=== PATIENT | female | born 1965 | race American Indian/Alaskan Native ===

== ENCOUNTER 2018-09-26 19:45 | Emergency (ER) | payer MEDICARE ==
--- NOTE | 2018-09-26 20:37 | Emergency Department Report ---
Blank Doc - Documentation Documentation: This is a 52-year-old female that presents with diarrhea and bloody stools. A lso has some abdominal pain. This initial assessment/diagnostic orders/clinical plan/treatment(s) is/are subject to change based on patient's health status, clinical progression and re- assessment by fellow clinical providers in the ED. Further treatment and workup at subsequent clinical providers discretion. Patient/guardians urged not to elope from the ED as their condition may be serious if not clinically assessed and managed. Initial orders include: 1- Patient sent to MAIN ED for further evaluation and treatment 2- labs 3- UA
[2018-09-26 21:07] LABS: Basophils # (Auto) 0.1 K/mm3 (0.0-0.1); Basophils % (Auto) 0.7 % (0.0-1.8); Eosinophils # (Auto) 0.2 K/mm3 (0.0-0.4); Eosinophils % (Auto) 2.6 % (0.0-4.3); Hematocrit 40.9 % (30.3-42.9); Hemoglobin 13.6 gm/dl (10.1-14.3); Lymphocytes # (Auto) 3.1 K/mm3 (1.2-5.4); Lymphocytes % (Auto) 35.1 % (13.4-35.0); Mean Corpuscular HGB Conc 33 % (30-34); Mean Corpuscular Volume 81 fl (79-97); Monocytes # (Auto) 0.4 K/mm3 (0.0-0.8); Platelet Count 254 K/mm3 (140-440); Red Blood Count 5.06 M/mm3 (3.65-5.03); Red Cell Distribution Width 15.4 % (13.2-15.2)
[2018-09-26 21:17] LABS: INR 0.88 (0.87-1.13); Partial Thromboplastin Time 29.9 Sec. (24.2-36.6)
[2018-09-26 21:21] LABS: Bacteria,Urine 1+ /HPF (Negative); Bilirubin,Urine NEG (Negative); Blood,Urine MOD (Negative); Color,Urine Amber (Yellow); Mucus,Urine 3+ /HPF; Urobilinogen,Urine < 2.0 mg/dL (<2.0)
[2018-09-26 21:30] LABS: Alanine Aminotransferase 14 units/L (7-56); Albumin 4.2 g/dL (3.9-5); BUN/Creatinine Ratio 14; Blood Urea Nitrogen 11 mg/dL (7-17); Calcium 9.9 mg/dL (8.4-10.2); Hemolysis Index 5
[2018-09-26 21:31] LABS: Bilirubin,Direct < 0.2 mg/dL (0-0.2)
[2018-09-26] MEDS ORDERED: TYLENOL PO ONE (22:26)
[2018-09-26] MEDS ORDERED: SUBLIMAZE IV ONE (22:26)
[2018-09-26] MEDS ORDERED: NACL 0.9% 1000 ML 1,000 ML IV ONE (22:26)
--- NOTE | 2018-09-26 22:27 | Emergency Department Report ---
ED General Adult HPI - General Chief complaint: GI Bleed Stated complaint: EMESIS/BLOODY STOOL/DIARRHEA Time Seen by Provider: 09/26/18 20:36 Source: patient, RN notes reviewed Mode of arrival: Ambulatory Limitations: No Limitations - History of Present Illness Initial comments: This is a 52-year-old female. The patient is not known to this provider pr eviously. She reports her primary care doctor is Dr. Rodríguez. She has a past medical history of diabetes, hypertension and depression. She reports that she is not taking her outpatient medications for many months. Patient presents to the emergency room with a complaint of diarrhea for many months. She reports that over the past few days, she has had "too many episodes to count." She thinks there might be blood, but she is not sure. She has intermittent abdominal pain. She denies abdominal pain at this moment. She denies nausea, vomiting. She denies irritative, obstructive urinary symptoms. She does not have a tree marker. She has not had a colonoscopy. Her symptoms of diarrhea worsened when she eats or drinks reportedly. Her abdominal pain is not present at the moment. -: Gradual, month(s) Radiation: abdomen Severity scale (0 -10): 8 Consistency: other Improves with: other Worsens with: other - Related Data Home Medications Medication Instructions Recorded Confirmed Last Taken Citalopram [Celexa] 10 mg PO QDAY 03/21/13 03/21/13 04/09/13 18:00 Ferrous Sulfate [Ferrous Sulfate 325 mg PO TID 03/21/13 03/21/13 04/07/13 18:00 Oral Liq 220 Mg/5 Ml] Insulin NPH Hum/Reg Insulin Hm 40 unit SQ 03/21/13 03/21/13 04/09/13 18:00 [Humulin 70-30 Vial] Lisinopril [Zestril] 10 mg PO QDAY 03/21/13 03/21/13 04/09/13 09:00 Metformin HCl [Metformin HCl ER] 500 mg PO BID 03/21/13 03/21/13 04/09/13 18:00 amLODIPine [Norvasc] 10 mg PO DAILY 03/21/13 03/21/13 04/09/13 18:00 clonazePAM [ Klonopin] 0.5 mg PO BID PRN 03/21/13 03/21/13 04/09/13 18:00 glipiZIDE [Glucotrol] 20 mg PO BID 03/21/13 03/21/13 04/09/13 18:00 risperiDONE [Risperidone] 1 mg PO BID 03/21/13 03/21/13 04/09/13 18:00 Previous Rx's Medication Instructions Recorded Last Taken Type Hydrocodone Bit/Acetaminophen 1 each PO Q6HR #10 tablet 04/10/13 Unknown Rx [Lortab 5-500 Tablet] Acetaminophen [Tylenol Arthritis] 650 mg PO Q6HR PRN #30 tablet.er 09/26/18 Unknown Rx Ciprofloxacin HCl [Cipro] 500 mg PO BID #14 tablet 09/26/18 Unknown Rx Metoclopramide [Reglan] 10 mg PO QID PRN #30 tablet 09/26/18 Unknown Rx metroNIDAZOLE [Flagyl] 500 mg PO Q8HR #21 tablet 09/26/18 Unknown Rx Allergies Allergy/AdvReac Type Severity Reaction Status Date / Time No Known Allergies Allergy Unverified 03/21/13 11:08 ED Review of Systems ROS: Stated complaint: EMESIS/BLOODY STOOL/DIARRHEA Other details as noted in HPI Constitutional: denies: fever, malaise Eyes: denies: eye discharge ENT: denies: epistaxis Respiratory: denies: cough Cardiovascular: denies: chest pain Gastrointestinal: abdominal pain, diarrhea Genitourinary: denies: urgency, dysuria Musculoskeletal: denies: back pain Skin: denies: lesions Neurological: denies: weakness Psychiatric: denies: anxiety ED Past Medical Hx - Past Medical History Previous Medical History?: Yes Hx Hypertension: Yes Hx Diabetes: Yes (2002) Hx Psychiatric Treatment: Yes (depression) - Surgical History Past Surgical History?: Yes Hx Cholecystectomy: Yes Additional Surgical History: B/L breast reconstruction - Social History Smoking Status: Never Smoker Substance Use Type: None - Medications Home Medications: Home Medications Medication Instructions Recorded Confirmed Last Taken Type Citalopram [Celexa] 10 mg PO QDAY 03/21/13 03/21/13 04/09/13 18:00 History Ferrous Sulfate [Ferrous Sulfate 325 mg PO TID 03/21/13 03/21/13 04/07/13 18:00 History Oral Liq 220 Mg/5 Ml] Insulin NPH Hum/Reg Insulin Hm 40 unit SQ 03/21/13 03/21/1313 18:00 History [Humulin 70-30 Vial] Lisinopril [Zestril] 10 mg PO QDAY 03/21/13 03/21/13 04/09/13 09:00 History Metformin HCl [Metformin HCl ER] 500 mg PO BID 03/21/13 03/21/13 04/09/13 18:00 History amLODIPine [Norvasc] 10 mg PO DAILY 03/21/13 03/21/13 04/09/13 18:00 History clonazePAM [ Klonopin] 0.5 mg PO BID PRN 03/21/13 03/21/13 04/09/13 18:00 History glipiZIDE [Glucotrol] 20 mg PO BID 03/21/13 03/21/13 04/09/13 18:00 History risperiDONE [Risperidone] 1 mg PO BID 03/21/13 03/21/13 04/09/13 18:00 History Hydrocodone Bit/Acetaminophen 1 each PO Q6HR #10 tablet 04/10/13 Unknown Rx [Lortab 5-500 Tablet] Acetaminophen [Tylenol Arthritis] 650 mg PO Q6HR PRN #30 tablet.er 09/26/18 Unknown Rx Ciprofloxacin HCl [Cipro] 500 mg PO BID #14 tablet 09/26/18 Unknown Rx Metoclopramide [Reglan] 10 mg PO QID PRN #30 tablet 09/26/18 Unknown Rx metroNIDAZOLE [Flagyl] 500 mg PO Q8HR #21 tablet 09/26/18 Unknown Rx ED Physical Exam - General Limitations: No Limitations General appearance: alert, in no apparent distress - Head Head exam: Present: atraumatic, normocephalic - Eye Eye exam: Present: normal appearance, EOMI. Absent: nystagmus - ENT ENT exam: Present: normal exam, normal orophraynx, mucous membranes moist, normal external ear exam - Neck Neck exam: Present: normal inspection, full ROM. Absent: tenderness, meningismus - Respiratory Respiratory exam: Present: normal lung sounds bilaterally. Absent: respiratory distress - Cardiovascular Cardiovascular Exam: Present: regular rate, normal rhythm, normal heart sounds. Absent: bradycardia, tachycardia, irregular rhythm, systolic murmur, diastolic murmur, rubs, gallop - GI/Abdominal GI/Abdominal exam: Present: soft, tenderness, other (there is right lower quadrant tenderness. There is no rebound, guarding or peritoneal signs.). Absent: distended, guarding, rebound, rigid, pulsatile mass - Rectal Rectal exam: Present: normal inspection, normal rectal tone, heme (-) stool, other (chaperoned by nurse ASHTYN PINEDA). Absent: decreased rectal tone, heme (+) stool, black stool, bloody stool, fecal impaction, hemorrhoids, mass - Extremities Exam Extremities exam: Present: normal inspection, full ROM, other (2+ pulses noted in the bilateral upper, lower extremities. Compartments soft. No long bony ten derness. The pelvis is stable.). Absent: pedal edema, joint swelling, calf tenderness - Back Exam Back exam: Present: normal inspection, full ROM. Absent: tenderness, CVA tenderness (R), paraspinal tenderness, vertebral tenderness - Neurological Exam Neurological exam: Present: alert, other (Extraocular movements intact. Tongue midline. No facial droop. Facial sensation intact to light touch in the V1, V2, V3 distribution bilaterally. 5 and 5 strength in 4 extremities.. Sensation is intact to light touch in 4 extremities.). Absent: motor sensory deficit - Psychiatric Psychiatric exam: Present: normal affect, normal mood - Skin Skin exam: Present: warm, dry, intact, normal color. Absent: rash ED Course Vital Signs 09/26/18 09/26/18 09/26/18 20:37 22:14 23:38 Temperature 98.3 F Pulse Rate 84 80 80 Respiratory 16 16 Rate Blood Pressure 174/88 Blood Pressure 164/83 170/87 [Right] O2 Sat by Pulse 99 99 Oximetry - Reevaluation(s) Reevaluation #1: 09/26/18 23:06 Differential diagnosis, including but not limited to: Colitis, diverticulitis, appendicitis, malignancy, inflammatory bowel disease Assessment and plan: 52-year-old female with reported complaint of intermittent abdominal pain, not having pain currently but tender on her right lower quadrant, reported episode of diarrhea for months, laboratory studies reviewed and are appreciated. Her physical exam does not suggest an obvious source of bleeding at this time, and hemoglobin, hematocrit are also elevated, which make bleeding quite unlikely. A CT scan of the abdomen and pelvis has been ordered. Patient guaiac-negative. We will treat her pain and give her IV fluids. We will reassess after her data points have resulted. Of note, during her history and physical, patient is in no acute distress, she is smiling, pleasant, calm an d cooperative, and appears to be quite comfortable. Reevaluation #2: 09/26/18 23:51 CT scan of the abdomen and pelvis is negative for acute disease. Patient resting comfortably. She will be started on empiric antibiotic therapy, and instructed to follow up as an outpatient. ED Medical Decision Making - Lab Data Result diagrams: 09/26/18 20:46 09/26/18 20:46 Vital Signs 09/26/18 09/26/18 20:37 22:14 Temperature 98.3 F Pulse Rate 84 80 Respiratory 16 Rate Blood Pressure 174/88 Blood Pressure 164/83 [Right] O2 Sat by Pulse 99 Oximetry Lab Results 09/26/18 09/26/18 09/26/18 Range/Units 20:45 20:46 20:46 WBC 8.9 (4.5-11.0) K/mm3 RBC 5.06 H (3.65-5.03) M/mm3 Hgb 13.6 (10.1-14.3) gm/dl Hct 40.9 (30.3-42.9) % MCV 81 (79-97) fl MCH 27 L (28-32) pg MCHC 33 (30-34) % RDW 15.4 H (13.2-15.2) % Plt Count 254 (140-440) K/mm3 Lymph % (Auto) 35.1 H (13.4-35.0) % [facility] % (Auto) 5.0 (0.0-7.3) % Eos % (Auto) 2.6 (0.0-4.3) % Baso % (Auto) 0.7 (0.0-1.8) % Lymph # 3.1 (1.2-5.4) K/mm3 [facility] # 0.4 (0.0-0.8) K/mm3 Eos # 0.2 (0.0-0.4) K/mm3 Baso # 0.1 (0.0-0.1) K/mm3 Seg Neutrophils % 56.6 (40.0-70.0) % Seg Neutrophils # 5.0 (1.8-7.7) K/mm3 PT 12.5 (12.2-14.9) Sec. INR 0.88 (0.87-1.13) APTT 29.9 (24.2-36.6) Sec. Sodium (137-145) mmol/L Potassium (3.6-5.0) mmol/L Chloride (98-107) mmol/L Carbon Dioxide (22-30) mmol/L Anion Gap mmol/L BUN (7-17) mg/dL Creatinine (0.7-1.2) mg/dL Estimated GFR ml/min BUN/Creatinine Ratio % Glucose (65-100) mg/dL Calcium (8.4-10.2) mg/dL Total Bilirubin (0.1-1.2) mg/dL Direct Bilirubin (0-0.2) mg/dL Indirect Bilirubin mg/dL AST (5-40) units/L ALT (7-56) units/L Alkaline Phosphatase (35-129) units/L Total Protein (6.3-8.2) g/dL Albumin (3.9-5) g/dL Albumin/Globulin Ratio % Lipase (13-60) units/L Urine Color Barb (Yellow) Urine Turbidity Slightly-cloudy (Clear) Urine pH 5.0 (5.0-7.0) Ur Specific [place] 1.035 H (1.003-1.030) Urine Protein 30 mg/dl (Negative) mg/dL Urine Glucose (UA) 50 (Negative) mg/dL Urine Ketones Neg (Negative) mg/dL Urine Blood Mod (Negative) Urine Nitrite Pos (Negative) Urine Bilirubin Neg (Negative) Urine Urobilinogen < 2.0 (<2.0) mg/dL Ur Leukocyte Esterase Mod (Negative) Urine WBC (Auto) 65.0 H (0.0-6.0) /HPF Urine RBC (Auto) 9.0 (0.0-6.0) /HPF U Epithel Cells (Auto) 2.0 (0-13.0) /HPF Urine Bacteria (Auto) 1+ (Negative) /HPF Urine Mucus 3+ /HPF 09/26/18 Range/Units 20:46 WBC (4.5-11.0) K/mm3 RBC (3.65-5.03) M/mm3 Hgb (10.1-14.3) gm/dl Hct (30.3-42.9) % MCV (79-97) fl MCH (28-32) pg MCHC (30-34) % RDW (13.2-15.2) % Plt Count (140-440) K/mm3 Lymph % (Auto) (13.4-35.0) % [facility] % (Auto) (0.0-7.3) % Eos % (Auto) (0.0-4.3) % Baso % (Auto) (0.0-1.8) % Lymph # (1.2-5.4) K/mm3 [facility] # (0.0-0.8) K/mm3 Eos # (0.0-0.4) K/mm3 Baso # (0.0-0.1) K/mm3 Seg Neutrophils % (40.0-70.0) % Seg Neutrophils # (1.8-7.7) K/mm3 PT (12.2-14.9) Sec. INR (0.87-1.13) APTT (24.2-36.6) Sec. Sodium 142 (137-145) mmol/L Potassium 3.6 (3.6-5.0) mmol/L Chloride 101.8 (98-107) mmol/L Carbon Dioxide 30 (22-30) mmol/L Anion Gap 14 mmol/L BUN 11 (7-17) mg/dL Creatinine 0.8 (0.7-1.2) mg/dL Estimated GFR > 60 ml/min BUN/Creatinine Ratio 14 % Glucose 174 H (65-100) mg/dL Calcium 9.9 (8.4-10.2) mg/dL Total Bilirubin 0.30 (0.1-1.2) mg/dL Direct Bilirubin < 0.2 (0-0.2) mg/dL Indirect Bilirubin 0.1 mg/dL AST 21 (5-40) units/L ALT 14 (7-56) units/L Alkaline Phosphatase 95 (35-129) units/L Total Protein 8.0 (6.3-8.2) g/dL Albumin 4.2 (3.9-5) g/dL Albumin/Globulin Ratio 1.1 % Lipase 11 L (13-60) units/L Urine Color (Yellow) Urine Turbidity (Clear) Urine pH (5.0-7.0) Ur Specific [place] (1.003-1.030) Urine Protein (Negative) mg/dL Urine Glucose (UA) (Negative) mg/dL Urine Ketones (Negative) mg/dL Urine Blood (Negative) Urine Nitrite (Negative) Urine Bilirubin (Negative) Urine Urobilinogen (<2.0) mg/dL Ur Leukocyte Esterase (Negative) Urine WBC (Auto) (0.0-6.0) /HPF Urine RBC (Auto) (0.0-6.0) /HPF U Epithel Cells (Auto) (0-13.0) /HPF Urine Bacteria (Auto) (Negative) /HPF Urine Mucus /HPF - Radiology Data Radiology results: report reviewed, image reviewed Critical care attestation.: If time is entered above; I have spent that time in minutes in the direct care of this critically ill patient, excluding procedure time. ED Disposition Clinical Impression: Abdominal pain, History of diarrhea, Elevated blood pressure reading Disposition: TO HOME OR SELFCARE Is pt being admited?: No Does the pt Need Aspirin: No Condition: Stable Additional Instructions: Take the antibiotics as directed. Take pain medication as needed/directed. Follow up with a tree marker within the next 2 weeks. Patient will likely need a colonoscopy within the near future to rule out cancer, tumor, malignancy. Do not consume alcohol while taking the medications. I recommend diets, weight loss and lifestyle modifications as we have discussed, WHICH will enhance weight loss, decreased blood pressure, and improved diabetes. Blood pressure was found to be elevated today in the emergency room. I recommend following up with a primary care doctor within the next month for hypertension, elevated blood pressure, and further follow-up of diabetes. Long- term complications of hypertension and diabetes includes stroke, heart attack, disability, paralysis, loss of quality of life. Return to the emergency room right away with new pain, worsening pain, migration of pain, projectile vomiting, change in mental status, confusion, new, worsening or different symptoms. Do not take metformin for the next 48 hours. Prescriptions: Ciprofloxacin HCl [Cipro] 500 mg PO BID #14 tablet metroNIDAZOLE [Flagyl] 500 mg PO Q8HR #21 tablet Metoclopramide [Reglan] 10 mg PO QID PRN #30 tablet PRN Reason: Nausea Acetaminophen [Tylenol Arthritis] 650 mg PO Q6HR PRN #30 tablet.er PRN Reason: Pain Referrals: [facility] [Provider Group] - 3-5 Days [facility] [Provider Group] - 3-5 Days Forms: Accompanied Note
--- NOTE | 2018-09-26 23:23 | Cat Scan Report ---
PROCEDURE: CT ABDOMEN PELVIS W CON TECHNIQUE: Computerized axial tomography of the abdomen and pelvis was performed after the IV inject ion of iodinated nonionic contrast. HISTORY: abd pain diarrhea? hx of gi bleed COMPARISONS: None . FINDINGS: Visualized lower thorax: No significant abnormality. Liver: Normal size and attenuation. Spleen: Normal size and attenuation. Gallbladder and biliary system: The gallbladder is absent. Pancreas: Normal. Adrenals: Normal. Kidneys: Normal. GI tract: There is no evidence of intestinal obstruction. Cecum and appendix are normal. The colon i s normal. . Lymph nodes and mesentery: Normal. Vasculature: Normal.. Bladder: Normal. Reproductive organs: Normal. Peritoneum: No free fluid. Musculoskeletal structures: Moderate degenerative changes of the spine.. Other: None . IMPRESSION: There is no evidence of intestinal or urinary tract obstruction. No ileus or enteritis. The appendix is normal. Previous cholecystectomy. . This document is electronically signed by Lizbet Cardona DO., September 26 2018 11:21:30 PM ET
[2018-09-26 23:39] VITALS: BP 170/87
== END 2018-09-27 00:22 | disposition home or self-care (01) ==
LOC: ED 19:45
DX: R19.7 Diarrhea, unspecified (principal); R10.9 Unspecified abdominal pain; I10 Essential (primary) hypertension; E11.9 Type 2 diabetes mellitus without complications; F32.9 Major depressive disorder, single episode, unspecified; Z90.49 Acquired absence of other specified parts of digestive tract; Z79.4 Long term (current) use of insulin
CPT/HCPCS: 36415; 74177; 80048; 80076; 81001; 82271; 83690; 85025; 85610; 85730; 96361; 96374; 99284; J3010; J7030; Q9967